=== PATIENT | male | born 1965 | race Caucasian/White ===

== ENCOUNTER 2016-12-03 03:13 | Emergency (ER) | payer SELFPAY ==
[~2016-12-03] VITALS: Ht 177.8 cm; Wt 95.5 kg
[~2016-12-03 03:13] MED LIST: ABILIFY30 MG PO; ATORVASTATIN CA10 MG PO; CYMBALTA60 M1 PO; INDERAL 10MG10 MG PO; KLONOPIN2 MG PO; LAMICTAL200 MG PO; TRAZODONE50 MG PO; ZOFRAN ODT8 MG PO
[2016-12-03] MEDS ORDERED: AMBIEN10 MG PO (03:21)
[2016-12-03] MEDS ORDERED: BUSPAR 15MG TAB15 MG PO (03:23)
[2016-12-03] MEDS ORDERED: DILANTIN 100MG100 MG PO (03:23)
[2016-12-03] MEDS ORDERED: VALIUM10 M1 PO (03:23)
[2016-12-03] MEDS ORDERED: TUSSIONEX PENN115 ML PO (05:00)
[2016-12-03] MEDS ORDERED: ZITHROMAX 250M250 MG PO (05:00)
[2016-12-03] MEDS ORDERED: PROAIR HFA0.09 MG/AC IH (05:01)
[2016-12-03 05:11] VITALS: BP 105/62
== END 2016-12-03 05:11 | disposition home or self-care (01) ==
LOC: ED 03:13
DX: J20.9 Acute bronchitis, unspecified (principal); G20 Parkinson's disease; F99 Mental disorder, not otherwise specified

== ENCOUNTER 2017-07-23 16:48 | Emergency (ER) | payer SELFPAY ==
[~2017-07-23] VITALS: Ht 177.8 cm; Wt 100.0 kg
[~2017-07-23 16:48] MED LIST changes: +AMBIEN10 MG PO; +BUSPAR 15MG TAB15 MG PO; +DILANTIN 100MG100 MG PO; +PROAIR HFA0.09 MG/AC IH; +TUSSIONEX PENN115 ML PO; +VALIUM10 M1 PO; +ZITHROMAX 250M250 MG PO
[2017-07-23] MEDS ORDERED: NORCO 325 MG-51 TA1 PO (18:44)
[2017-07-23 19:08] VITALS: BP 124/86
== END 2017-07-23 19:16 | disposition home or self-care (01) ==
LOC: ED 16:48
DX: M25.561 Pain in right knee (principal); F43.10 Post-traumatic stress disorder, unspecified
CPT/HCPCS: J1885

== ENCOUNTER → 2017-07-30 | Outpatient (CLI) | payer SELFPAY ==
[2017-07-23 19:08] VITALS: BP 124/86
[~2017-07-30] MED LIST changes: +NORCO 325 MG-51 TA1 PO
== END ==
LOC: RAD 13:15
DX: M79.644 Pain in right finger(s) (principal); Z87.81 Personal history of (healed) traumatic fracture